=== PATIENT | female | born 1965 | race Caucasian/White ===

== ENCOUNTER 2019-08-03 13:41 | Emergency (ER) | payer MEDICAID ==
[~2019-08-03] VITALS: Ht 157.5 cm; Wt 89.8 kg
[2019-08-03 13:59] VITALS: BP 150/88
--- NOTE | 2019-08-03 14:09 | NUR ---
WAIT AT LOBBY.
--- NOTE | 2019-08-03 14:50 | NUR ---
PT AMBULATED TO ER BED 10
--- NOTE | 2019-08-03 15:36 | NUR ---
53 YO F C/O LEFT 1ST AND 2ND DIGIT PAIN X FEW HOURS. PAIN STATES THAT SHE NOTICED A "BUBBLE" ON BOTH DIGITS THIS AM. 9/10 THROBBING PAIN, +YELLOW WATERY D/C. PT IS A KNOWN DIABETIC RECEIVING ABX S/P SURGERY OF 2ND, 3RD AND 4TH DIGITS OF RIGHT FOOT. VSS. +EDEMA OF BLE. PATIENT POSITIONED COMFORTABLY IN BED. ERMD MADE AWARE OF PT STATUS. PMH: DM MEDS: INSULIN, ABX NKA
--- NOTE | 2019-08-03 16:07 | NUR ---
Dr. Rios is evaluating the patient at bedside.
--- NOTE | 2019-08-03 17:10 | NUR ---
APPLIED DRESSING TO RIGHT 2ND, 3RD, AND 4TH TOE WITHOUT ANY ISSUES
[2019-08-03 17:14] VITALS: BP 150/88
--- NOTE | 2019-08-03 17:14 | NUR ---
Patient discharged with v/s stable. Written and verbal after care instructions given and explained. Patient verbalized understanding. Ambulatory with steady gait. All questions addressed prior to discharge. Advised to follow up with PMD.
--- NOTE | 2019-08-03 17:17 | NUR ---
APPLIED ORTHO SHOE TO LEFT FOOT WITHOUT ANY ISSUES
== END 2019-08-03 17:14 | disposition home or self-care (01) ==
LOC: MED 13:41
DX: S90.422A Blister (nonthermal), left great toe, initial encounter (principal); E11.9 Type 2 diabetes mellitus without complications; Z98.890 Other specified postprocedural states; X58.XXXA Exposure to other specified factors, initial encounter; Y93.89 Activity, other specified; Y92.89 Other specified places as the place of occurrence of the external cause; Y99.8 Other external cause status
CPT/HCPCS: 99282